=== PATIENT | female | born 1975 | race Hispanic/Latino ===

== ENCOUNTER 2017-05-07 06:58 | Day surgery (SDC) | payer OTHER ==
[~2017-05-07] VITALS: Ht 152.4 cm; Wt 83.9 kg
[~2017-05-07 06:58] MED LIST: FIORICET 50-321 EACH PO
--- NOTE | 2017-05-07 11:12 | NUR ---
05/07/17 1112 Eugene Calvo MD SPEAKING WITH PT
--- NOTE | 2017-05-11 07:18 | OR ---
[facility] [place] [facility] [address], [place] [address] Signed DATE OF SERVICE: 05/07/2017 PREOPERATIVE DIAGNOSIS: Missed . POSTOPERATIVE DIAGNOSIS: Incomplete . PROCEDURE: Suction dilatation and curettage. SURGEON: Rnadal Ayon MD ANESTHESIA: MAC. ESTIMATED BLOOD LOSS: 20 mL. SPECIMEN: Uterine contents. DRAINS: None. FINDINGS: Cervix thick, closed. Uterus soft, boggy, 6-week size, there were no adnexal masses, no blood in the vagina, small amount of irregular tissue within the uterine cavity. COMPLICATIONS: None. DESCRIPTION OF PROCEDURE: The patient was brought in the operating r oom, placed in supine position. After adequate MAC was obtained, the patient was placed in dorsal lithotomy position and prepped and draped in usual sterile fashion. A weighted speculum was placed in the vagina and the anterior lip of cervix was grasped w i th an Allis clamp. Uterine cavity was sounded to 11 cm and the cervix dilated up to a #10-Romanian dilator. A #9 curved suction tip curette was then carefully introduced in the uterine cavity after testing suction and then the uterine cavity was scraped in 360 degree fashion removing only a small amount of irregular tissue. The entire uterine cavity was scraped in 360 degree fashion. No additional tissue was removed. The normal empty sound of the uterus could be felt throughout. At this point, all instruments removed from the cervix and uterus. The cervix was observed and noted to have good hemostasis. All instruments were then removed from the vagina. The pa tient tolerated the procedure well, went to recovery room in good condition. Sponge and instrument count correct at the end of procedure. Uterine contents were sent to pathology for identification. Electronically Signed By: RANDAL AYON MD 05/11/17 0718 PATIENT NAME: NANCY SOLANO OPERATIVE REPORT DATE OF : 77 PHYSICIAN: RANDAL AYON MD REPORT #: [id number] REPORT IS CONFIDENTIAL AND NOT TO BE RELEASED WITHOUT AUTHORIZATION [address] [address] Signed MD JENNIFER Ramesh/Rey /[id number] Electronically Signed By: RANDAL AYON MD 05/11/17 0718 PATIENT NAME: NANCY SOLANO OPERATIVE REPORT DATE OF : 77 PHYSICIAN: RANDAL AYON MD REPORT #: [id number] REPORT IS CONFIDENTIAL AND NOT TO BE RELEASED WITHOUT AUTHORIZATION
== END 2017-05-07 11:52 | disposition home or self-care (01) ==
LOC: DS 06:58
PROVIDERS: General Practice
PROC: 10A07ZZ Abortion of Products of Conception, Via Natural or Artificial Opening (ICD-10-PCS; principal; 2017-05-07 09:30)
DX: O02.1 Missed abortion (principal); Z87.891 Personal history of nicotine dependence
CPT/HCPCS: 00952; J2704; J3010; J7120